=== PATIENT | male | born 1950 | race Caucasian/White ===

== ENCOUNTER 2016-06-10 13:12 | Emergency (ER) | payer MEDICARE, OTHER ==
[~2016-06-10] VITALS: Ht 177.8 cm; Wt 86.3 kg
[2016-06-10 13:35] VITALS: BP 137/76
[2016-06-10] MEDS ORDERED: DEXAMETHASONE SOD PHOS 4 MG/ML VIAL PO ONE (14:00)
[2016-06-10] MEDS ORDERED: KETOROLAC 60 MG/2 ML VIAL. IM ONE (14:00)
--- NOTE | 2016-06-10 14:39 | RAD ---
CT thoracic spine without contrast . History: Back pain for 3 weeks, no known injury . Comparison: None. Technique: Noncontrast helical CT of the lumbar spine was performed. Axial, sagittal, and coronal reconstructions were obtained. One or more of the following individualized dose reduction techniques were utilized for the study: Automated exposure control Adjustment of mA and/or kV according to patient's size Use of iterative reconstruction technique. Findings: Alignment of the thoracic spine appears anatomic. There is no evidence of acute fracture or acute malalignment. No prevertebral soft tissue swelling is identified. There are 12 rib-bearing thoracic type vertebral bodies. The L1 level demonstrates elongated, segmented transverse processes versus hypoplastic ribs. Flowing ossifications are seen at essentially all thoracic levels, compatible with changes of diffuse hepatic skeletal hyperostosis (DISH). Multiple levels demonstrate mild facet degeneration. No osseous spinal canal stenosis identified. Mild paraseptal emphysematous changes are seen in the lung apices. Mild fibrotic changes are seen involving both lungs. Nonspecific mild groundglass nodule seen in right upper lobe (axial image 49) measuring 11 mm. A few smaller ill-defined groundglass nodules are seen involving the right upper lobe. Left lower lobe demonstrates soft tissue pulmonary nodule measuring 8 mm) axial image 79). Right lower lobe demonstrates 5 mm soft tissue pulmonary nodule adjacent to the pleura (axial image 75). Several additional soft tissue pulmonary nodules are seen scattered throughout the lungs. Impression: 1. No acute osseous traumatic injury identified. 2. DISH. 3. Emphysematous changes. Multiple soft tissue pulmonary nodules as well as ground glass nodules are seen. Recommend follow-up chest CT without contrast in 3-6 months.
[2016-06-10] MEDS ORDERED: DIAZ5TAB PO (15:04)
[2016-06-10] MEDS ORDERED: NAPR500T3 PO (15:04)
--- NOTE | 2016-06-10 15:04 | PHYS DOC ---
Past History Past Medical History: [place], Other Past Surgical History: Other Alcohol Use: Occasionally Drug Use: None Adult General Chief Complaint Chief Complaint: BACK PAIN OR INJURY HPI HPI Patient presenting to the emergency department for evaluation of low back pain that started 3 weeks ago after playing golf and then doing some yard work. He said it was getting better however over the past several days he says it is returning to that same pain level. It is worse in his right paraspinal area however there is no weakness numbness tingling or bowel or bladder incontinence and there is no pain shooting down his legs. Patient is here because he did not want to follow with his primary care provider as he thought it would take several days to get an MRI and he is requesting that we do an MRI. He was informed that we do not have an MRI machine he was quite angry. Him that we could do a CT scan to ensure that there is no compression fractures or other obvious deformities on his back. Patient is agreeable to this plan. Review of Systems Review of Systems Constitutional: Denies fever or chills [] Cardiovascular: No CP GI: Denies abdominal pain, nausea, vomiting, bloody stools or diarrhea [] : Denies dysuria or hematuria [] Musculoskeletal: + back pain. No joint pain [] Integument: Denies rash or skin lesions [] Neurologic: Denies headache, focal weakness or sensory changes [] Current Medications Current Medications Current Medications Medications (Trade) Dose Ordered Sig/[facility] Start Time Stop Time Status Last Admin Dose Admin Dexamethasone Sodium Phosphate (Decadron) 10 mg 1X ONCE 06/10/16 14:00 06/10/16 14:01 DC 06/10/16 14:48 10 MG Ketorolac Tromethamine (Toradol) 60 mg 1X ONCE 06/10/16 14:00 06/10/16 14:01 DC 06/10/16 14:49 60 MG Allergies Allergies Allergies Coded Allergies Type Severity Reaction Last Updated Verified No Known Drug Allergies 06/10/16 No Physical Exam Physical Exam Constitutional: Well developed, well nourished, no acute distress, non-toxic appearance. [] Cardiovascular:Heart rate regular rhythm, no murmur [] Lungs & Thorax: Bilateral breath sounds clear to auscultation [] Abdomen: Bowel sounds normal, soft, no tenderness, no masses, no pulsatile masses. [] Skin: Warm, dry, no erythema, no rash. [] Back: Positive diffuse lower thoracic spine tenderness to palpation mostly on his right paraspinal muscles. Extremities: No tenderness, no cyanosis, no clubbing, ROM intact, no edema. [] Neurologic: Alert and oriented X 3, normal motor function, normal sensory function, no focal deficits noted. [] Current Patient Data Vital Signs Vital Signs Date Time Temp Pulse Resp B/P Pulse Ox O2 Delivery O2 Flow Rate FiO2 06/10/16 13:35 98.3 67 20 98 Room Air EKG EKG [] Radiology/Procedures Radiology/Procedures CT of the lumbar spine without contrast, 06/10/2016: History: Back pain for 3 weeks Noncontrast scans were obtained with multiplanar reconstructions produced. No fracture or dislocation is identified. There are mild degenerative changes involving scattered facet joints. There are moderate scattered marginal spurs. No significant posterior disc bulge or protrusion is seen at L1-2, L2-3 or L3-4. The central spinal canal and neural foramina are well preserved. At L4-5 there is mild posterior disc bulging and moderate posterior marginal spurring laterally on the right. The central spinal canal is well-preserved. There is moderate inferior foraminal narrowing on the right. At L5-S1 there is a moderate posterior disc/osteophyte complex. This is producing moderate narrowing of the inferior aspects of the neural foramina. There is mild posterior ligamentous thickening related to facet joint arthropathy. The central spinal canal is not significantly stenotic. There is moderate aortoiliac calcific plaquing. There is an infrarenal abdominal aorta aneurysm measuring 3.0 x 3.3 cm. There is no evidence of retroperitoneal hemorrhage. 2 small left intrarenal radiopacities are seen compatible with nonobstructing calculi. IMPRESSION: 1. Moderate multilevel degenerative change as described above. 2. No acute lumbar spine abnormality is detected. 3. Small infrarenal abdominal aortic aneurysm. 4. Small nonobstructing left intrarenal calculi. DICTATED AND SIGNED BY: REYMUNDO MASCORRO MD DATE: 06/10/16 1526 CC: LORENZO SORENSEN DO; PUSHPA KING DO ~ CT thoracic spine without contrast . History: Back pain for 3 weeks, no known injury . Comparison: None. Technique: Noncontrast helical CT of the lumbar spine was performed. Axial, sagittal, and coronal reconstructions were obtained. One or more of the following individualized dose reduction techniques were utilized for the study: Automated exposure control Adjustment of mA and/or kV according to patient's size Use of iterative reconstruction technique. Findings: Alignment of the thoracic spine appears anatomic. There is no evidence of acute fracture or acute malalignment. No prevertebral soft tissue swelling is identified. There are 12 rib-bearing thoracic type vertebral bodies. The L1 level demonstrates elongated, segmented transverse processes versus hypoplastic ribs. Flowing ossifications are seen at essentially all thoracic levels, compatible with changes of diffuse hepatic skeletal hyperostosis (DISH). Multiple levels demonstrate mild facet degeneration. No osseous spinal canal stenosis identified. Mild paraseptal emphysematous changes are seen in the lung apices. Mild fibrotic changes are seen involving both lungs. Nonspecific mild groundglass nodule seen in right upper lobe (axial image 49) measuring 11 mm. A few smaller ill-defined groundglass nodules are seen involving the right upper lobe. Left lower lobe demonstrates soft tissue pulmonary nodule measuring 8 mm) axial image 79). Right lower lobe demonstrates 5 mm soft tissue pulmonary nodule adjacent to the pleura (axial image 75). Several additional soft tissue pulmonary nodules are seen scattered throughout the lungs. Impression: 1. No acute osseous traumatic injury identified. 2. DISH. 3. Emphysematous changes. Multiple soft tissue pulmonary nodules as well as ground glass nodules are seen. Recommend follow-up chest CT without contrast in 3-6 months. DICTATED AND SIGNED BY: REYMUNDO MASCORRO MD DATE: 06/10/16 1427 Course & Med Decision Making Course & Med Decision Making Patient is up walking around the emergency department and is quite impatient as he is standing in the hallway waiting for his CT results. His CT of his thoracic spine show no acute changes and the incidental findings were discussed and the need for follow-up were discussed as well. Patient was given Decadron and Toradol here and he will be prescribed Valium and told to continue taking his Percocet and Ativan ibuprofen or another anti-inflammatory. Patient told to follow with his primary care provider for physical therapy and further imaging if necessary. Patient has no red flag signs or symptoms necessitating an emergent MRI. Patient will be discharged in stable condition. He is aware and agreeable with plan for discharge and verbalized understanding of the need for short-term follow-up and strict ER return precautions discussed worsening pain weakness or incontinence or other general concerns. Dragon Disclaimer Dragon Disclaimer This chart was dictated in whole or in part using Voice Recognition software in a busy, high-work load, and often noisy Emergency Department environment. It may contain unintended and wholly unrecognized errors or omissions. Departure Departure: Impression: Primary Impression: Low back sprain Disposition: HOME, SELF-CARE Condition: GOOD Referrals: LORENZO SORENSEN DO (PCP) Patient Instructions: Back Pain, Adult Additional Instructions: TAKE NAPROXEN PRESCRIBED AND YOUR PERCOCET FOR BREAKTHROUGH PAIN. THE VALIUM IS FOR MUSCLE SPASM. FOLLOW WITH YOUR PRIMARY CARE PROVIDER SOON YOU CAN AND COME BACK TO THE ED SOONER WITH ANY NEW OR WORSENING PAIN, INCONTINENCE, OR OTHER GENERAL CONCERNS. Scripts Diazepam (Valium)5 Mg Tablet5 Mg PO TID PRN MUSCLE SPASMS #20 TAB Prov:PUSHPA KING DO 06/10/16 Naproxen 500 Mg Tablet1 Tab PO BID #60 TAB Ref 1 Prov:PUSHPA KING DO 06/10/16 Problem Qualifiers Primary Impression: Low back sprain Encounter type: initial encounter Qualified Code: S33.9XXA - Sprain of unspecified parts of lumbar spine and pelvis, initial encounter PUSHPA KING DO Jun 10, 2016 15:04
--- NOTE | 2016-06-10 15:31 | RAD ---
CT of the lumbar spine without contrast, 06/10/2016: History: Back pain for 3 weeks Noncontrast scans were obtained with multiplanar reconstructions produced. No fracture or dislocation is identified. There are mild degenerative changes involving scattered facet joints. There are moderate scattered marginal spurs. No significant posterior disc bulge or protrusion is seen at L1-2, L2-3 or L3-4. The central spinal canal and neural foramina are well preserved. At L4-5 there is mild posterior disc bulging and moderate posterior marginal spurring laterally on the right. The central spinal canal is well-preserved. There is moderate inferior foraminal narrowing on the right. At L5-S1 there is a moderate posterior disc/osteophyte complex. This is producing moderate narrowing of the inferior aspects of the neural foramina. There is mild posterior ligamentous thickening related to facet joint arthropathy. The central spinal canal is not significantly stenotic. There is moderate aortoiliac calcific plaquing. There is an infrarenal abdominal aorta aneurysm measuring 3.0 x 3.3 cm. There is no evidence of retroperitoneal hemorrhage. 2 small left intrarenal radiopacities are seen compatible with nonobstructing calculi. IMPRESSION: 1. Moderate multilevel degenerative change as described above. 2. No acute lumbar spine abnormality is detected. 3. Small infrarenal abdominal aortic aneurysm. 4. Small nonobstructing left intrarenal calculi. PQRS Compliance Statement: One or more of the following individualized dose reduction techniques were utilized for this examination: 1. Automated exposure control 2. Adjustment of the mA and/or kV according to patient size 3. Use of iterative reconstruction technique
== END 2016-06-10 15:41 | disposition home or self-care (01) ==
LOC: ER 13:15
DX: S33.5XXA Sprain of ligaments of lumbar spine, initial encounter (principal); I25.2 Old myocardial infarction; X58.XXXA Exposure to other specified factors, initial encounter; Y93.53 Activity, golf; Y99.8 Other external cause status; Y92.89 Other specified places as the place of occurrence of the external cause
CPT/HCPCS: 72128; 72131; 96372; 99284; J1100; J1885

== ENCOUNTER → 2017-07-12 | Outpatient (CLI) | payer MEDICARE, OTHER ==
[~2017-07-12] MED LIST: DIAZ5TAB PO; IOHEXOL 300 MG/ML 75 ML VIAL. IV ONE; NAPR-514 PO
[2017-07-12 09:36] LABS: CREATININE 1.1 mg/dL (0.7-1.3)
--- NOTE | 2017-07-12 14:29 | RAD ---
CT ANGIOGRAPHY ABD AND PELVIS Indication: Abdominal aortic aneurysm Technique: Postcontrast CT imaging was performed of the abdomen and pelvis, multiplanar reconstruction images submitted to include MIP and 3-D reconstruction images. One or more of the following individualized dose reduction techniques were utilized for this examination: 1. Automated exposure control 2. Adjustment of the mA and/or kV according to patient size 3. Use of iterative reconstruction technique. Contrast: 75 cc Omnipaque 300 Comparison: March 11, [address] thoracic and lumbar spine June 10, 2016 Findings: There is fusiform aneurysmal dilatation of the infrarenal abdominal aorta up to about 3.4 cm transverse by 3.2 cm AP by about 5.6 cm in length located about 5 cm below the left renal artery origin. Previous greatest dimension of the infrarenal abdominal aorta in 2008 was about 2.5 cm. Single bilateral renal arteries are patent. Superior mesenteric and significantly arteries are patent. Inferior mesenteric artery is patent. There is atherosclerotic calcification of the abdominal aorta as well as noncalcified plaque. There is also atherosclerotic calcification of the iliac arteries bilaterally. There is narrowing of the left external iliac artery more proximally about 0.4 cm residual caliber. Both kidneys enhance without hydronephrosis. There is new 2.6 cm hypodense lesion of the superior right kidney, density measurements of a cyst. There are some smaller hypodense foci scattered in the left kidney difficult to otherwise accurately characterize given small size with largest of these about 0.7 cm. No focal abnormality is identified of the liver, pancreas, spleen. Gallbladder is present without obvious intraluminal abnormality by CT. There is no adrenal nodularity. Accurate evaluation of bowel is limited without oral contrast, no significant bowel dilatation. There is no significant free air or free fluid. There is retained stool in segments of the colon. There is multilevel lumbar facet degenerative change. There is multilevel lumbar spondylosis. There is [id number] neural foramina compromise bilaterally at L5-S1. There is a small 0.5 cm noncalcified right lower lobe pulmonary nodule which is unchanged compared with 2008 exam, considered benign. There is fat in the inguinal canals bilaterally, no bowel. IMPRESSION: 1. There is mild fusiform aneurysmal dilatation of the infrarenal abdominal aorta greatest dimension 3.4 cm axial dimension. 2. There is new large simple cyst of the superior right kidney. There are some small hypodense foci of the left kidney otherwise too small to accurately characterize. Electronically signed by: Curly Oneill MD (07/12/2017 2:26 PM) [id number]
== END | disposition home or self-care (01) ==
LOC: CT 08:39
PROVIDERS: ATTEND Internal Medicine Cardiovascular Disease
DX: Z01.818 Encounter for other preprocedural examination (principal); I10 Essential (primary) hypertension; I71.4 Abdominal aortic aneurysm, without rupture; N28.1 Cyst of kidney, acquired; E11.9 Type 2 diabetes mellitus without complications; J44.9 Chronic obstructive pulmonary disease, unspecified; Z79.01 Long term (current) use of anticoagulants; Z87.891 Personal history of nicotine dependence
CPT/HCPCS: 36415; 74174; 82565; 84520; Q9967

== ENCOUNTER 2019-11-05 10:10 | Emergency (ER) | payer MEDICARE, OTHER ==
[~2019-11-05] VITALS: Ht 177.8 cm; Wt 76.1 kg
[~2019-11-05 10:10] MED LIST changes: -IOHEXOL 300 MG/ML 75 ML VIAL. IV ONE
--- NOTE | 2019-11-05 10:38 | PHYS DOC ---
Past History Past Medical History: Cancer, Diabetes, Hypertension, [place], Other Additional Past Medical Histor: back pain, lung CA Past Surgical History: Other Additional Past Surgical Histo: Right lobe Smoking: Cigarettes Alcohol Use: Heavy Drug Use: None General Adult EDM: Chief Complaint: MULTIPLE COMPLAINTS HPI: HPI: Patient is a 69 year old M who presents with pain on the L side of his face, neck, and anterior/posterior shoulder that began 3 weeks ago. He states the pain does not move down his arm. He describes the pain as sharp, constant since it began, and rates it 7/10. He also describes numbness/tingling in the same areas that began 2 weeks ago, that has worsened over time, and comes and goes. He denies any weakness or trauma to the area. The pain and numbness is not associated with any movement. He states for the past few weeks he has had headaches 1-2x/wk. The headache pain wraps around his forehead on each side, Tylenol relieves the pain. He also complains of sharp chest pains that come and go. This pain is felt on the left side of his chest, does not radiate, and has no associated nausea/diaphoresis. He states that this pain does feel similar to his MS in the past. Review of Systems: Review of Systems: Constitutional: Denies fever or chills Eyes: Denies redness or eye pain HENT: Denies nasal congestion or sore throat Respiratory: Denies cough or shortness of breath Cardiovascular: Denies palpitations; reports chest pain GI: Denies abdominal pain, nausea, or vomiting : Denies dysuria or hematuria Musculoskeletal: Denies back pain or joint pain Integument: Denies rash or skin lesions Neurologic: Denies focal weakness or sensory changes; reports THOMPSON. Complete systems were reviewed and found to be within normal limits, except as documented in this note. Heart Score: HEART Score for Chest Pain: HEART Score for Chest Pain Response (Comments) Value History Slighlty/Non-Suspicious 0 ECG Normal 0 Age > 65 2 Risk Factors >3 Risk Factors or Hx CAD 2 Troponin < Normal Limit 0 Total 4 Risk Factors: Risk Factors: DM, Current or recent (<one month) smoker, HTN, HLP, family history of CAD, obesity. Risk Scores: Score 0 - 3: 2.5% MACE over next 6 weeks - Discharge Home Score 4 - 6: 20.3% MACE over next 6 weeks - Admit for Clinical Observation Score 7 - 10: 72.7% MACE over next 6 weeks - Early Invasive Strategies Allergies: Allergies: Allergies Coded Allergies Type Severity Reaction Last Updated Verified No Known Drug Allergies 06/10/16 No Physical Exam: PE: Constitutional: Well developed, well nourished, no acute distress. HENT: Normocephalic, atraumatic Eyes: PERRL, EOMI, conjunctiva normal, no discharge Neck: Normal range of motion, no tenderness to palpation, supple Lungs & Thorax: No respiratory distress, equal chest rise and fall Abdomen: Soft, no tenderness Skin: Warm, dry, no erythema, no rash Back: No tenderness, no CVA tenderness Extremities: No tenderness to palpation, ROM intact, no edema, muscle strength +5/5 all extremities. UE & LE pulses +2/2 b/l. Neurologic: Alert and oriented X 3, no focal deficits noted, no sensory deficits, cerebellar function intact. Psychologic: Affect normal, judgment normal Current Patient Data: Vital Signs: Vital Signs Date Time Temp Pulse Resp B/P (MAP) Pulse Ox O2 Delivery O2 Flow Rate FiO2 11/05/19 10:10 98.5 62 18 151/76 (101) 100 Room Air EKG: EKG: @10:16 Normal sinus rhythm at [address] elevations or T wave inversions. QRS 104 ms, QT 392 ms. QTc 404 ms. Radiology/Procedures: Radiology/Procedures: PROCEDURE: CT HEAD WO CONTRAST CT HEAD WO CONTRAST History:Headache, left arm numbness Comparison: None. Technique: Noncontrast CT imaging was performed of the head. Exposure: One or more of the following individualized dose reduction techniques were utilized for this examination: 1. Automated exposure control 2. Adjustment of the mA and/or kV according to patient size 3. Use of iterative reconstruction technique. Findings: No acute extra-axial or parenchymal hemorrhage is identified. There is no significant intra-axial mass effect, midline shift, or extra-axial fluid collection. The lundy-white differentiation of the major vascular territories is preserved. Ventricular size is within normal limits. There is mild supratentorial atrophy somewhat greater of the frontal lobes. The mastoid air cells and the visualized paranasal sinuses are aerated. No acute calvarial abnormality is identified. There is atherosclerotic calcification of the carotid siphons bilaterally. Impression: 1. No acute intracranial abnormality is identified. If there is clinical suspicion for recent or evolving ischemia, follow-up CT or MRI could be beneficial. Electronically signed by: Curly Oneill MD (11/05/2019 11:05 AM) [id number] PROCEDURE: CT ANGIO CHEST ABD PELVIS PQRS Compliance Statement: One or more of the following individualized dose reduction techniques were utilized for this examination: 1. Automated exposure control 2. Adjustment of the mA and/or kV according to patient size 3. Use of iterative reconstruction technique CT ANGIO CHEST ABD PELVIS 11/05/2019 10:48 AM Indication: Chest pain, history of aneurysm COMPARISON: None available. TECHNIQUE: Multiple axial CT images of the chest, abdomen and pelvis were obtained after the intravenous administration of 100 mL Omnipaque 350. Coronal and sagittal reformats are provided. Maximum intensity projection images are provided. FINDINGS: Vascular: Aortic root measures 3.0 cm. Sinus of Valsalva measures 3.7 cm. Sinotubular junction measures 2.7 cm. Ascending thoracic aorta measures up to 3.1 cm. Calcified plaque is identified at the origins of the brachiocephalic vessels which are widely patent. Descending thoracic aorta is normal in caliber measuring 2.3 cm. Mild calcified atheromatous plaque is present. Origins of the iliac axis and superior mesenteric artery are widely patent. Single bilateral renal arteries are widely patent. Mild stenosis at the origin of the inferior mesenteric artery. There is an infrarenal abdominal aortic aneurysm measuring 3.5 x 3.7 cm with eccentric soft plaque measuring 10 mm in maximal thickness. There is no penetrating aortic ulcer although there is ulcerated plaque. Dense calcified atheromatous plaque is present. Bilateral common iliac arteries are normal in course and caliber with moderate calcified and noncalcified atheromatous plaque. External iliac arteries are patent. There is irregularity involving the internal iliac arteries with there is mild/moderate stenosis. Nonvascular findings: Thyroid gland is normal in appearance. There is biapical pleural-parenchymal scarring, right greater left. Solid noncalcified pulmonary nodule in the right upper lobe measures 8 mm (series 8, image 63). Trace right pleural effusion. Subpleural interstitial changes are identified with associated groundglass opacities with minimal honeycombing in the inferior lingula. Early cystic changes are noted at the right lung base. Additional solid noncalcified pulmonary nodules measure up to 7 mm in the left lower lobe (series 8, image 133). There is a thick-walled cyst in the right upper lobe measuring 8 mm (series 8, image 50). This could represent a cavitary pulmonary nodule. Paraseptal pulmonary emphysematous changes noted. Additional micronodules are present throughout the lungs predominantly the upper lobes. Bibasilar subsegmental atelectasis. Heart size within normal limits. Bilateral hilar lymphadenopathy is noted. Right hilar lymph node measures up to 10 mm (series 8, image 97). Left hilar lymph node measures up to 10 mm (series 8, image 102). Opacified portions of the pulmonary arteries are widely patent. Thoracic esophagus is normal in appearance. Coronary artery vascular opacifications are present. No pericardial effusion. Liver, spleen, bilateral adrenal glands and pancreas are normal in appearance. Gallbladder is present without adjacent inflammation. There is no free fluid or free intraperitoneal air. No pathologically enlarged abdominal or pelvic lymph nodes. Small fat-containing bilateral inguinal hernias are identified. Mild colonic diverticulosis. Appendix is normal in appearance. Kidneys enhance symmetrically. Bilateral renal cortical cysts are identified measuring up to 3.0 cm in the superior pole the right kidney. No hydronephrosis or suspicious renal mass. Urinary bladder is within normal limits given degree of distention. No suspicious osseous abnormality. IMPRESSION: 1. Infrarenal abdominal aortic aneurysm measuring 3.5 x 3.7 cm with eccentric soft plaque. No evidence for aortic rupture or dissection. 2. Moderate to advanced atheromatous plaque involving the abdominal and pelvic vasculature. 3. Mild to moderate irregularity of the internal iliac arteries. 4. Solid noncalcified pulmonary nodules are identified throughout the lungs measuring up to 8 mm in the right upper lobe. Fleischner guidelines for incidentally detected pulmonary nodules suggests CT chest at 3-6 months, then consider CT at 18-24 months for multiple solid noncalcified pulmonary nodules 6-8 mm in size. 5. Bilateral hilar lymphadenopathy. Consideration may be given for underlying sarcoidosis. Alternatively, an infectious bronchiolitis could have similar appearance. 6. Subpleural interstitial changes are identified with associated groundglass opacities as may be seen with nonspecific interstitial pneumonia interstitial lung disease. Paraseptal pulmonary emphysema versus early honeycombing noted throughout the lungs. 7. Trace right pleural effusion with adjacent compressive atelectasis versus infiltrate. Electronically signed by: Joy Chavarria MD (11/05/2019 12:12 PM) [id number] Course & Med Decision Making: Course & Med Decision Making Pertinent Labs and Imaging studies reviewed. (See chart for details) Patient presents with multiple complaints including facial numbness and shoulder pain x 3 weeks. Reports some atypical chest discomfort. Hx of prior aortic aneurysm. NIHSS 0. Labs obtained and posted to chart. Troponin WNL. EKG stable. CT head without acute process. CTA chest/abd/pelvis with findings of abdominal aortic aneurysm. Patient given copy of CT report to give to his PCP. Patient stable for discharge with outpatient follow-up with PCP. Discussed findings and plan with patient, who acknowledges understanding and agreement. Dragon Disclaimer: Dragon Disclaimer: This electronic medical record was generated, in whole or in part, using a voice recognition dictation system. Departure Departure: Impression: Primary Impression: Paresthesia of left arm Additional Impressions: Left facial numbness Pulmonary nodule Disposition: HOME/RESIDENCE PRIOR TO ADM Condition: STABLE Referrals: LORENZO SORENSEN DO (PCP) KEMAL PRADO MD Patient Instructions: Paresthesia, [id number], Pulmonary Nodule, [id number] Additional Instructions: Call Dr. Alfred Okeefe (pain management) for further evaluation and treatment at: Address: [address] [place] [address], [place] [address] Scripts Cyclobenzaprine Hcl (CYCLOBENZAPRINE HCL) 10 Mg Tablet 1 TAB PO Q8HRS PRN for MUSCLE PAIN, #14 TAB Prov: REYMUNDO WATTS DO 11/05/19 Prednisone (PREDNISONE) 20 Mg Tablet 2 TAB PO DAILY for Paresthesias, #8 TAB Start this prescription tomorrow, Monday11/06/2019 Prov: REYMUNDO WATTS DO 11/05/19 Justification of Admission: Justification of Admission: Justification of Admission Dx: N/A NIHSS - ED NIH Stroke Scale: NIH Stroke Scale Response (Comments) Value Level of Consciousness: 0 Alert/Responsive 0 LOC Questions: 0 Answers both correctly 0 LOC Commands: 0 Performs both tasks 0 Best Gaze: 0 Normal 0 Visual: 0 No visual loss 0 Facial Palsy: 0 Normal, symmetrical 0 Motor - Left Arm 0 No drift 0 Motor - Right Arm 0 No drift 0 Motor - Left Leg 0 No drift 0 Motor: Right Leg 0 No drift 0 Limb Ataxia: 0 Absent 0 Sensory: 0 No loss 0 Best Language: 0 Normal 0 Dysathria: 0 Normal 0 Extinction and Inattention: 0 Normal 0 Total 0 WTATS,REYMUNDO Ku DO Nov 05, 2019 10:38
[2019-11-05] MEDS ORDERED: KETOROLAC 15 MG/ML VIAL. IVP ONE (10:45)
[2019-11-05] MEDS ORDERED: ASPIRIN 325 MG TABLET PO ONE (10:45)
[2019-11-05] MEDS ORDERED: IV NORMAL SALINE 1,000ML 1,000 ML IV ONE (10:45)
[2019-11-05] MEDS ORDERED: DEXAMETHASONE SOD PHOS 4 MG/ML VIAL. IVP ONE (10:45)
[2019-11-05 10:46] LABS: BASO # 0.1 x10^3/uL (0.0-0.2); BASO % 1 % (0-3); EOS # 0.2 x10^3/uL (0.0-0.7); EOS % 2 % (0-3); HEMATOCRIT 39.6 % (39.0-53.0); HEMOGLOBIN 13.2 g/dL (13.0-17.5); LYMPH # 2.7 x10^3/uL (1.0-4.8); LYMPH % 30 % (24-48); MEAN CORPUSCULAR HEMOGLOBIN 32 pg (25-35); MEAN CORPUSCULAR HGB CONC 33 g/dL (31-37); MEAN CORPUSCULAR VOLUME 96 fL (79-100); MONO # 0.9 x10^3/uL (0.0-1.1); MONO % 10 % (0-9); NEUT # 5.1 x10^3uL (1.8-7.7); NEUT % 56 % (31-73); PLATELET COUNT 299 x10^3/uL (140-400); RED BLOOD COUNT 4.12 x10^6/uL (4.30-5.70); RED CELL DISTRIBUTION WIDTH 14.1 % (11.5-14.5)
[2019-11-05 10:59] LABS: ANION GAP 8 (6-14); BLOOD UREA NITROGEN 8 mg/dL (8-26); BUN/CREATININE RATIO 8 (6-20); CALCIUM 9.2 mg/dL (8.5-10.1); CARBON DIOXIDE 29 mmol/L (21-32); CHLORIDE 102 mmol/L (98-107); GFR 74.3; GLUCOSE 110 mg/dL (70-99); POTASSIUM 4.5 mmol/L (3.5-5.1); SODIUM 139 mmol/L (136-145)
[2019-11-05] MEDS ORDERED: IOHEXOL 350 MG/ML 100 ML VIAL. IV ONE (11:00)
--- NOTE | 2019-11-05 11:08 | RAD ---
CT HEAD WO CONTRAST History:Headache, left arm numbness Comparison: None. Technique: Noncontrast CT imaging was performed of the head. Exposure: One or more of the following individualized dose reduction techniques were utilized for this examination: 1. Automated exposure control 2. Adjustment of the mA and/or kV according to patient size 3. Use of iterative reconstruction technique. Findings: No acute extra-axial or parenchymal hemorrhage is identified. There is no significant intra-axial mass effect, midline shift, or extra-axial fluid collection. The lundy-white differentiation of the major vascular territories is preserved. Ventricular size is within normal limits. There is mild supratentorial atrophy somewhat greater of the frontal lobes. The mastoid air cells and the visualized paranasal sinuses are aerated. No acute calvarial abnormality is identified. There is atherosclerotic calcification of the carotid siphons bilaterally. Impression: 1. No acute intracranial abnormality is identified. If there is clinical suspicion for recent or evolving ischemia, follow-up CT or MRI could be beneficial. Electronically signed by: Curly Oneill MD (11/05/2019 11:05 AM) [id number]
[2019-11-05 11:16] LABS: ALBUMIN 3.4 g/dL (3.4-5.0); ALK PHOS 57 U/L (46-116); ALT (SGPT) 14 U/L (16-63); AST (SGOT) 13 U/L (15-37); LIPASE 38 U/L (73-393); MAGNESIUM 2.2 mg/dL (1.8-2.4); TOTAL BILIRUBIN 0.5 mg/dL (0.2-1.0); TOTAL PROTEIN 6.7 g/dL (6.4-8.2)
--- NOTE | 2019-11-05 12:15 | RAD ---
PQRS Compliance Statement: One or more of the following individualized dose reduction techniques were utilized for this examination: 1. Automated exposure control 2. Adjustment of the mA and/or kV according to patient size 3. Use of iterative reconstruction technique CT ANGIO CHEST ABD PELVIS 11/05/2019 10:48 AM Indication: Chest pain, history of aneurysm COMPARISON: None available. TECHNIQUE: Multiple axial CT images of the chest, abdomen and pelvis were obtained after the intravenous administration of 100 mL Omnipaque 350. Coronal and sagittal reformats are provided. Maximum intensity projection images are provided. FINDINGS: Vascular: Aortic root measures 3.0 cm. Sinus of Valsalva measures 3.7 cm. Sinotubular junction measures 2.7 cm. Ascending thoracic aorta measures up to 3.1 cm. Calcified plaque is identified at the origins of the brachiocephalic vessels which are widely patent. Descending thoracic aorta is normal in caliber measuring 2.3 cm. Mild calcified atheromatous plaque is present. Origins of the iliac axis and superior mesenteric artery are widely patent. Single bilateral renal arteries are widely patent. Mild stenosis at the origin of the inferior mesenteric artery. There is an infrarenal abdominal aortic aneurysm measuring 3.5 x 3.7 cm with eccentric soft plaque measuring 10 mm in maximal thickness. There is no penetrating aortic ulcer although there is ulcerated plaque. Dense calcified atheromatous plaque is present. Bilateral common iliac arteries are normal in course and caliber with moderate calcified and noncalcified atheromatous plaque. External iliac arteries are patent. There is irregularity involving the internal iliac arteries with there is mild/moderate stenosis. Nonvascular findings: Thyroid gland is normal in appearance. There is biapical pleural-parenchymal scarring, right greater left. Solid noncalcified pulmonary nodule in the right upper lobe measures 8 mm (series 8, image 63). Trace right pleural effusion. Subpleural interstitial changes are identified with associated groundglass opacities with minimal honeycombing in the inferior lingula. Early cystic changes are noted at the right lung base. Additional solid noncalcified pulmonary nodules measure up to 7 mm in the left lower lobe (series 8, image 133). There is a thick-walled cyst in the right upper lobe measuring 8 mm (series 8, image 50). This could represent a cavitary pulmonary nodule. Paraseptal pulmonary emphysematous changes noted. Additional micronodules are present throughout the lungs predominantly the upper lobes. Bibasilar subsegmental atelectasis. Heart size within normal limits. Bilateral hilar lymphadenopathy is noted. Right hilar lymph node measures up to 10 mm (series 8, image 97). Left hilar lymph node measures up to 10 mm (series 8, image 102). Opacified portions of the pulmonary arteries are widely patent. Thoracic esophagus is normal in appearance. Coronary artery vascular opacifications are present. No pericardial effusion. Liver, spleen, bilateral adrenal glands and pancreas are normal in appearance. Gallbladder is present without adjacent inflammation. There is no free fluid or free intraperitoneal air. No pathologically enlarged abdominal or pelvic lymph nodes. Small fat-containing bilateral inguinal hernias are identified. Mild colonic diverticulosis. Appendix is normal in appearance. Kidneys enhance symmetrically. Bilateral renal cortical cysts are identified measuring up to 3.0 cm in the superior pole the right kidney. No hydronephrosis or suspicious renal mass. Urinary bladder is within normal limits given degree of distention. No suspicious osseous abnormality. IMPRESSION: 1. Infrarenal abdominal aortic aneurysm measuring 3.5 x 3.7 cm with eccentric soft plaque. No evidence for aortic rupture or dissection. 2. Moderate to advanced atheromatous plaque involving the abdominal and pelvic vasculature. 3. Mild to moderate irregularity of the internal iliac arteries. 4. Solid noncalcified pulmonary nodules are identified throughout the lungs measuring up to 8 mm in the right upper lobe. Fleischner guidelines for incidentally detected pulmonary nodules suggests CT chest at 3-6 months, then consider CT at 18-24 months for multiple solid noncalcified pulmonary nodules 6-8 mm in size. 5. Bilateral hilar lymphadenopathy. Consideration may be given for underlying sarcoidosis. Alternatively, an infectious bronchiolitis could have similar appearance. 6. Subpleural interstitial changes are identified with associated groundglass opacities as may be seen with nonspecific interstitial pneumonia interstitial lung disease. Paraseptal pulmonary emphysema versus early honeycombing noted throughout the lungs. 7. Trace right pleural effusion with adjacent compressive atelectasis versus infiltrate. Electronically signed by: Joy Chavarria MD (11/05/2019 12:12 PM) [id number]
[2019-11-05] MEDS ORDERED: PRED20TA PO (12:38)
[2019-11-05] MEDS ORDERED: ORPH-16 PO (12:38)
[2019-11-05 12:45] VITALS: BP 139/72
[2019-11-05] MEDS ORDERED: CYCL-331 PO (13:19)
--- NOTE | 2019-11-05 15:34 | EKG ---
[address] [address] Test Date: 2019-11-05 Test Time: 10:16:32 Pat Name: OSMANY SAEZ Department: Room: Gender: M [employer]ishing [employer] T[employer]: : 1950 Requested By: REYMUNDO WATTS Order Number: [id number] Reading MD: Measurements Intervals [place] Rate: 63 P: 51 ID: [id number] QRS: 37 QRSD: 104 T: 25 QT: 392 QTc: 404 Interpretive Statements SINUS RHYTHM NORMAL ECG RI6.02 No previous ECG available for comparison
== END 2019-11-05 12:45 | disposition home or self-care (01) ==
LOC: ER 10:10
DX: R20.2 Paresthesia of skin (principal); R91.1 Solitary pulmonary nodule; M54.2 Cervicalgia; R51 Headache; R07.89 Other chest pain; E11.9 Type 2 diabetes mellitus without complications; I10 Essential (primary) hypertension; I25.2 Old myocardial infarction; F17.210 Nicotine dependence, cigarettes, uncomplicated; F10.20 Alcohol dependence, uncomplicated; Y90.9 Presence of alcohol in blood, level not specified
CPT/HCPCS: 36415; 70450; 71275; 74174; 80053; 82553; 83690; 83735; 83880; 84484; 85025; 85610; 85730; 93005; 96361; 96374; 96375; 99285; J1100; J1885; J7030; Q9967

== ENCOUNTER 2020-11-29 09:35 | Emergency (ER) | payer MEDICARE, OTHER ==
[~2020-11-29] VITALS: Ht 177.8 cm; Wt 76.1 kg
[~2020-11-29 09:35] MED LIST changes: +CYCL-331 PO; +ORPH-16 PO; +PRED20TA PO
[2020-11-29 09:46] VITALS: BP 133/70
[2020-11-29] MEDS ORDERED: DOXY100C3 PO (09:54)
--- NOTE | 2020-11-29 09:55 | PHYS DOC ---
Past History Past Medical History: Cancer, Diabetes, Hypertension, [place], Other Additional Past Medical Histor: back pain, lung CA Past Surgical History: Other Additional Past Surgical Histo: Right lobe Smoking: Cigarettes Alcohol Use: Heavy Drug Use: None Adult General Chief Complaint Chief Complaint: INSECT BITE HPI HPI Patient is a 70-year-old male presenting for spider bite. This is a known spider bite as he reports feeling a pinching feeling on the ventral medial portion of his right forearm 4 days prior and seeing the spider. Patient was unaware of what type of spider it was. States that initially became indurated, raised, and he reports after 24 hours it got large enough for him to "bleed it off". States he popped it in a moderate amount of clear fluid was evacuated with slightly blood-tinged at the end. Since then, lesion is gotten more red, indurated with some streaking in his arm concerning him that he might have an infection requiring antibiotics Review of Systems Review of Systems Fourteen body systems of review of systems have been reviewed. See HPI for pertinent positives and negative responses, other rico all other systems are negative, non-pertinent or non-contributory Allergies Allergies Allergies Coded Allergies Type Severity Reaction Last Updated Verified No Known Drug Allergies 06/10/16 No Physical Exam Physical Exam Constitutional: Well developed, well nourished, no acute distress, non-toxic appearance. HENT: Normocephalic, atraumatic, bilateral external ears normal, oropharynx moist, no oral exudates, nose normal. Eyes: PERRLA, EOMI, conjunctiva normal, no discharge. Neck: Normal range of motion, no tenderness, supple, no stridor. Cardiovascular: Heart rate regular, sinus rhythm, no murmurs rubs or gallops Lungs & Thorax: Bilateral breath sounds clear to auscultation Abdomen: Bowel sounds normal, soft, no tenderness, no masses, no pulsatile masses. Nonsurgical abdomen, no peritoneal signs Skin: Warm, dry, obvious inoculation site on medial portion of right ventral forearm surface with induration, erythema, mild streaking of approximately an inch up and down arm Back: No tenderness, no CVA tenderness. Extremities: No tenderness, no cyanosis, no clubbing, ROM intact, no edema. Neurologic: Alert and oriented X 3, grossly normal motor & sensory function, no focal deficits noted. Psychologic: Affect normal, judgement normal, mood normal. Current Patient Data Vital Signs Vital Signs Date Time Temp Pulse Resp B/P (MAP) Pulse Ox O2 Delivery O2 Flow Rate FiO2 11/29/20 09:46 98.0 80 16 133/70 (91) 98 Room Air Vital Signs Date Time Temp Pulse Resp B/P (MAP) Pulse Ox O2 Delivery O2 Flow Rate FiO2 11/29/20 09:46 98.0 80 16 133/70 (91) 98 Room Air EKG EKG [] Radiology/Procedures Radiology/Procedures [] Heart Score C/O Chest Pain: No Risk Factors: Risk Factors: DM, Current or recent (<one month) smoker, HTN, HLP, family history of CAD, obesity. Risk Scores: Risk Factors: DM, Current or recent (<one month) smoker, HTN, HLP, family history of CAD, obesity. Course & Med Decision Making Course & Med Decision Making ABCs unremarkable History and physical exam nonconcerning for any emergent or surgical issues With that said patient's arm concerning and meets criteria for antibiotic use. Given that this was a known spider bite of unknown etiology, joint decision made to start doxycycline antibiotics. Patient educated on side effects and need to complete this as written Advised patient to contact PCP and schedule outpatient follow-up within the next 1 to 2 weeks to ensure symptomatic resolution. Strict return precautions were discussed with understanding verbalized by patient, all questions and concerns addressed prior to departure Dragon Disclaimer Dragon Disclaimer This electronic medical record was generated, in whole or in part, using a voice recognition dictation system. Departure Departure: Impression: Primary Impression: Spider bite Disposition: HOME / SELF CARE / HOMELESS Condition: STABLE Referrals: LORENZO SORENSEN DO (PCP) Patient Instructions: Spider Bite Scripts Doxycycline Hyclate (DOXYCYCLINE HYCLATE) 100 Mg Capsule 1 CAP PO BID for spider bite, #13 CAP Prov: GORDO RM DO 11/29/20 GORDO RM DO Nov 29, 2020 09:54
[2020-11-29] MEDS ORDERED: DOXYCYCLINE HYCLATE 100 MG TABLET PO ONE (10:00)
== END 2020-11-29 10:16 | disposition home or self-care (01) ==
LOC: ER 09:35
DX: S50.869A Insect bite (nonvenomous) of unspecified forearm, initial encounter (principal); W57.XXXA Bitten or stung by nonvenomous insect and other nonvenomous arthropods, initial encounter; Y93.89 Activity, other specified; Y92.89 Other specified places as the place of occurrence of the external cause; Y99.8 Other external cause status
CPT/HCPCS: 99283-25